=== PATIENT | male | born 1985 | race Caucasian/White ===

== ENCOUNTER 2019-03-30 13:18 | Emergency (ER) | payer BC, OTHER ==
[~2019-03-30] VITALS: Ht 177.8 cm; Wt 70.3 kg
--- NOTE | 2019-03-30 13:33 | NUR ---
patient was seen by MD. 12 lead EKG done upon arrival
--- NOTE | 2019-03-30 14:15 | NUR ---
Patient discharged to home in stable conditon. Written and verbal after care instructions given. Patient verbalizes understanding of instructions. All belongings w/ pt. Pt self-ambulated w/o difficulty.
[2019-03-30 14:16] VITALS: BP 119/72
== END 2019-03-30 14:17 | disposition home or self-care (01) ==
LOC: ER 13:18
DX: S20.212A Contusion of left front wall of thorax, initial encounter (principal); F17.210 Nicotine dependence, cigarettes, uncomplicated; X50.1XXA Overexertion from prolonged static or awkward postures, initial encounter; Y93.89 Activity, other specified; Y92.89 Other specified places as the place of occurrence of the external cause; Y99.8 Other external cause status
CPT/HCPCS: 71101; A4663

== ENCOUNTER 2021-04-14 16:27 | Emergency (ER) | payer BC, OTHER ==
[~2021-04-14] VITALS: Ht 177.8 cm; Wt 70.3 kg
[2021-04-14] MEDS ORDERED: KETOROLAC TROMETHAMINE 15 MG INJ IVP ONE (16:45)
[2021-04-14] MEDS ORDERED: ONDANSETRON 4 MG/2 ML VIAL IV ONE (16:45)
[2021-04-14] MEDS ORDERED: IV NORMAL SALINE 1000 ML BAG IV ONE (16:45)
--- NOTE | 2021-04-14 16:56 | NUR ---
PT IS IN ROOM #2A. DR FRANCISCO EVALUATED THE PT.
[2021-04-14] MEDS ORDERED: KETOROLAC TROMETHAMINE 30 MG INJ ONE (17:00)
[2021-04-14] MEDS ORDERED: ONDANSETRON 4 MG/2 ML VIAL ONE (17:00)
[2021-04-14 17:01] LABS: MEAN CORPUSCULAR HEMOGLOBIN 33.4 uug (23.8-33.4); MEAN CORPUSCULAR VOLUME 97.3 fL (73.0-96.2); PLATELET COUNT (AUTO) 193 K/uL (152-348)
[2021-04-14 17:02] LABS: *BILIRUBIN,URIN NEGATIVE (NEGATIVE); *BLOOD, URINE 3+ (NEGATIVE); *COLOR,URINE YELLOW (YELLOW); *KETONES,URINE 1+ (NEGATIVE); LEUKOCYTE ESTERASE ,URINE NEGATIVE (NEGATIVE); NITRITE, URINE NEGATIVE (NEGATIVE); PH,URINE 6.5 (5.0-8.0); UGLUCOSE NEGATIVE (NEGATIVE)
[2021-04-14 17:08] LABS: CREATININE 1.3 mg/dL (0.6-1.3); POTASSIUM 3.4 mmol/L (3.5-5.1)
[2021-04-14 17:14] LABS: BILIRUBIN,DIRECT 0.1 mg/dL (0.0-0.2); BILIRUBIN,TOTAL 0.7 mg/dL (0.2-1.0); TOTAL PROTEIN, SERUM 7.5 g/dL (6.4-8.2)
[2021-04-14 17:18] LABS: *CLARITY,URINE HAZY (CLEAR)
[2021-04-14 17:19] LABS: BACTERIA,URINE FEW /HPF (NONE SEEN); CALCIUM OXALATE CRYSTALS,UR FEW /HPF (NONE SEEN); MUCUS,URINE FEW /LPF (0-FEW); RBC,URINE 50-80 /HPF (0-3); SQUAMOUS EPITHELIAL CELL,UR FEW /HPF (NONE SEEN)
[2021-04-14] MEDS ORDERED: HYDR-3980 PO (17:44)
[2021-04-14] MEDS ORDERED: TAMS-3 PO (17:44)
--- NOTE | 2021-04-14 18:59 | NUR ---
PT WAS D/C'd TO HOME. D/C INSTRUCTIONS GIVEN TO THE PT BY DR FRANCISCO.
[2021-04-14 19:01] VITALS: BP 131/71
== END 2021-04-14 19:02 | disposition home or self-care (01) ==
LOC: ER 16:29
DX: N23 Unspecified renal colic (principal); N13.30 Unspecified hydronephrosis; M51.37 Other intervertebral disc degeneration, lumbosacral region; Z87.442 Personal history of urinary calculi; F17.200 Nicotine dependence, unspecified, uncomplicated
CPT/HCPCS: 36415; 74176; 80048; 80076; 81001; 83690; 85025; 96361; 96374; 96375; 99284; J1885; J2405; A4663; J7030